=== PATIENT | female | born 2005 | race Two or more races ===

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

== ENCOUNTER 2024-01-06 13:13 | Emergency (ER) | payer OTHER ==
[~2024-01-06] VITALS: Ht 160 cm; Wt 72.7 kg
[~2024-01-06 13:13] MED LIST changes: +ALBU18HF12 IH
[2024-01-06 13:19] VITALS: TEMP 98.2
[2024-01-06 15:45] VITALS: BP 108/59; PULSE 93; RESP 18; O2SAT 98
[2024-01-06] MEDS ORDERED: SULF-261 PO (16:28)
[2024-01-06] MEDS ORDERED: CEPH-558 PO (16:28)
== END 2024-01-06 16:37 | disposition home or self-care (01) ==
LOC: EMS 13:13
DX: K12.2 Cellulitis and abscess of mouth (principal); J45.909 Unspecified asthma, uncomplicated
CPT/HCPCS: 99283; Z7502

== ENCOUNTER 2024-06-08 12:59 | Emergency (ER) | payer OTHER ==
[~2024-06-08] VITALS: Ht 160 cm; Wt 47.7 kg
[~2024-06-08 12:59] MED LIST changes: -ALBU17AE27 IH; +CEPH-558 PO; +SULF-261 PO
[2024-06-08 13:03] VITALS: TEMP 98.5
[2024-06-08] MEDS: ERYTHROMYCIN 0.5% 3.5 GM TUBE OPHTHALMIC OINTMENT OU ONE (14:17)
[2024-06-08] MEDS ORDERED: ERYT3.5O8 OU (14:50)
[2024-06-08 15:13] VITALS: BP 117/73; PULSE 92; RESP 17; O2SAT 99
== END 2024-06-08 15:15 | disposition home or self-care (01) ==
LOC: EMS 12:59
DX: H00.012 Hordeolum externum right lower eyelid (principal); H00.015 Hordeolum externum left lower eyelid; J45.909 Unspecified asthma, uncomplicated
CPT/HCPCS: 99283